=== PATIENT | male | born 1955 | race Asian ===

== ENCOUNTER 2020-03-27 11:52 | Emergency (ER) | payer SELFPAY ==
[~2020-03-27] VITALS: Ht 160 cm; Wt 78.0 kg
[~2020-03-27 11:52] MED LIST: ADVIL
[2020-03-27 11:54] VITALS: BP 144/94
[2020-03-27] MEDS ORDERED: methylPREDNISolone SOD SUCC 125 MG/2 ML VL IM ONE (12:45)
== END 2020-03-27 13:15 | disposition home or self-care (01) ==
LOC: ER 11:52
DX: M17.11 Unilateral primary osteoarthritis, right knee (principal); M10.9 Gout, unspecified
CPT/HCPCS: 73562; 96372; 99283; J2930